=== PATIENT | male | born 1965 | race Caucasian/White ===

== ENCOUNTER 2017-12-11 11:57 | Emergency (ER) | payer OTHER ==
[2017-12-11 12:54] LABS: Absolute Lymphocytes (CBC) 1.2 K/uL (0.7-4.9); Absolute Monocytes 0.7 K/uL (0.1-1.3); Absolute Neutrophil 8.8 K/uL (1.8-8.0); Basophils % 0.6 % (0-1.3); Eosinophils % 0.4 % (0-4.4); Hematocrit 31.3 % (39.6-49.0); Lymphocytes % 11.3 % (15.3-44.8); MCH 20.8 pg (27.0-35.0); MCV 65.1 fL (80-100); Monocytes % 6.7 % (3.3-12.3); RBC Red Blood Cell Count 4.81 M/uL (4.33-5.43)
[2017-12-11 13:17] LABS: Anisocytosis 1+; Blood Morphology Comment NOTED (NOT SEEN); Platelet Estimate INCR; Urine White Blood Cell Casts OK
[2017-12-11 13:36] LABS: Bilirubin Direct 0.2 mg/dL (0-0.2); Bilirubin Total 0.4 mg/dL (0.2-1.0); Protein, Total 7.8 g/dL (6.4-8.2)
--- NOTE | 2017-12-11 14:21 | RAD REPORT ---
EXAM DESCRIPTION: CT - Chest For Pe Angio - 12/11/2017 2:03 pm CLINICAL HISTORY: Bloody stool, weakness, shortness of breath, history of colon cancer in June with little or no foll ow-up COMPARISON: None. TECHNIQUE: Dynamically enhanced 3 mm thick images of the chest were obtained during administration o f approximately 150mL Isovue 370 IV contrast. Coronal and oblique MIP reconstruction images were gene rated and reviewed. Exam utilizes a protocol to evaluate the pulmonary arterial tree. All CT scans are performed using dose optimization technique as appropriate and may include automated exposure control or mA/KV adjustment according to patient size. FINDINGS: No pulmonary emboli are identified. The aorta as imaged shows no acute or suspicious finding. No pericardial thickening or effusion. No focal infiltrates and no suspicious mass. Granuloma is seen in the posterior lower left lung field . No pleural effusion or pleural thickening. No mediastinal or hilar suspicious masses. No chest wall masses or abnormal axillary lymphadenopathy. IMPRESSION: No pulmonary emboli identified. No other significant or suspicious findings.
--- NOTE | 2017-12-11 14:30 | RAD REPORT ---
EXAM DESCRIPTION: CT - Abdomen Pelvis W Contrast - 12/11/2017 2:03 pm CLINICAL HISTORY: Bloody stool, dizziness, history of colon cancer diagnosis in June with little or no subsequent follow-up COMPARISON: CT PE study same date TECHNIQUE: Biphasic, helical CT imaging of the abdomen and pelvis was performed following 100 ml non -ionic IV contrast. Oral contrast was given. All CT scans are performed using dose optimization technique as appropriate and may include automated exposure control or mA/KV adjustment according to patient size. FINDINGS: No suspicious findings in the lung bases. No pericardial thickening or effusion. Liver is grossly abnormal. There are numerous variably sized heterogeneous low-density masses scatter ed throughout the liver parenchyma. Largest lesion is in the dome approximately 8 cm in diameter. Spleen and pancreas show no suspicious findings. Gallbladder and biliary tree are also without suspic ious finding. Symmetric renal function is seen with no hydronephrosis or suspicious renal mass. Contracted urinary bladder shows no suspicious finding. No adrenal abnormality. No gastric dilatation or gastric wall thickening. No acute small bowel finding. Appendix is normal. M oderately large stool volume extends throughout the colon from cecum through descending colon. Sigmoi d colon is quite tortuous and redundant. In the mid sigmoid colon there is a large bulky malignant ma ss approximately 8 x 6 cm in size. This encircles the lumen of the colon and may involve 2 different segments of the sigmoid colon where the redundant loops of sigmoid colon abut one another. No free air, free fluid or inflammatory stranding. Several small 8-12 mm lymph nodes are present in the fat adjacent to the sigmoid colon. Small lymph nodes are seen near the origin of each inguinal ca nal. No bulky lymphadenopathy. No omental thickening. Disc and bony degenerative changes are present. No clearly pathologic bone process. Small periumbilical hernia is present. IMPRESSION: Large bulky 8 centimeter sigmoid malignant mass. The mass encircles the lumen of the sig moid colon and involves the wall of an adjacent segment of the tortuous sigmoid colon that abuts the primary mass. Numerous variably sized metastatic lesions throughout the liver parenchyma largest at 8 cm. Multiple small malignant lymph nodes adjacent to the primary sigmoid mass.
--- NOTE | 2017-12-11 15:22 | ER ---
Nurse's Notes [facility] Name: Paresh Cruz Age: 52 yrs Sex: Male : 1965 Arrival Date: 12/11/2017 Time: 12:02 Bed 16 Private MD: Diagnosis: Colon Mass;GI Bleeding Presentation: 12/11 12:05 Presenting complaint: Patient states: Bloody stools, weakness, dizziness that started 1 aj year ago but got worse in the last few days. Patient reports being DX with colon cancer in June, but has not followed up with GI or oncologist. Transition of care: patient was not received from another setting of care. Onset of symptoms was 2016. Risk Assessment: Do you want to hurt yourself or someone else? Patient reports no desire to harm self or others. Initial Sepsis Screen: Does the patient meet any 2 criteria? No. Patient's initial sepsis screen is negative. Does the patient have a suspected source of infection? No. Patient's initial sepsis screen is negative. Care prior to arrival: None. 12:05 Method Of Arrival: Ambulatory aj 12:05 Acuity: SALONI 2 aj Triage Assessment: 12:08 General: Appears in no apparent distress. uncomfortable, Behavior is calm, cooperative, aj appropriate for age. Pain: Complains of pain in right lower quadrant and left lower quadrant. Neuro: Level of Consciousness is awake, alert, obeys commands, Oriented to person, place, time, situation, Appropriate for age. Neuro: Reports dizziness. Respiratory: Reports cough that is Airway is patent Respiratory effort is even, unlabored, Respiratory pattern is regular, symmetrical. GI: Abdomen is flat, non-distended, Reports lower abdominal pain, bloody stool. Derm: Skin is intact, is healthy with good turgor, Skin is pale. Historical: - Allergies: 12:08 No Known Allergies; aj - Home Meds: 12:08 None [Active]; aj - PMHx: 12:08 colon cancer; Diverticulitis; aj - PSHx: 12:08 eye; aj - Immunization history:: Adult Immunizations unknown. - Social history:: Smoking status: Patient/guardian denies using tobacco. - Ebola Screening: : Patient negative for fever greater than or equal to 101.5 degrees Fahrenheit, and additional compatible Ebola Virus Disease symptoms Patient denies exposure to infectious person Patient denies travel to an Ebola-affected area in the 21 days before illness onset No symptoms or risks identified at this time. Screenin:18 Abuse screen: Denies threats or abuse. Denies injuries from another. Nutritional hj screening: No deficits noted. Tuberculosis screening: No symptoms or risk factors identified. Fall Risk None identified. Assessment: 12:18 GI: Bowel sounds present X 4 quads. Abd is soft Abdomen is tender to palpation Reports hj rectal bleeding, bloody stool. 13:30 Reassessment: Patient and/or family updated on plan of care and expected duration. Pain hj level reassessed. Patient is alert, oriented x 3, equal unlabored respirations, skin warm/dry/pink. wheeled to CT:. 13:45 Reassessment: Patient and/or family updated on plan of care and expected duration. Pain hj level reassessed. Patient is alert, oriented x 3, equal unlabored respirations, skin warm/dry/pink. back form CT:. 14:16 Reassessment: Patient and/or family updated on plan of care and expected duration. Pain hj level reassessed. Patient is alert, oriented x 3, equal unlabored respirations, skin warm/dry/pink. awaiting results and POC;. 15:13 Reassessment: Patient and/or family updated on plan of care and expected duration. Pain hj level reassessed. Patient is alert, oriented x 3, equal unlabored respirations, skin warm/dry/pink. awaiting POC:. Vital Signs: 12:08 BP 109 / 72; Pulse 99; Resp 14; Temp 98.8; Pulse Ox 99% on R/A; Weight 93.89 kg; Height aj 6 ft. 0 in. (182.88 cm); 13:00 BP 110 / 70; Pulse 85; Resp 18; Pulse Ox 100% on R/A; hj 14:14 BP 110 / 78 Supine; Pulse 77; Resp 18; Pulse Ox 99% on R/A; hj 14:14 BP 102 / 73 Sitting; Pulse 74; Resp 18; Pulse Ox 100% on R/A; hj 14:14 BP 106 / 71 Standing; Pulse 87; Resp 18; Pulse Ox 99% on R/A; hj 15:13 BP 110 / 75; Pulse 75; Resp 18; Pulse Ox 100% on R/A; hj 15:40 BP 112 / 76; Pulse 74; Resp 18; Pulse Ox 100% on R/A; hj 12:08 Body Mass Index 28.07 (93.89 kg, 182.88 cm) ED Course: 12:02 Patient arrived in ED. mr 12:07 Triage completed. aj 12:08 Arm band placed on right wrist. Patient placed in an exam room. aj 12:12 Zachary Stewart, RN is Primary Nurse. 12:13 Logan Corrigan PA is PHCP. [facility] 12:13 Miguel Powell MD is Attending Physician. [facility] 12:19 Patient has correct armband on for positive identification. Placed in gown. Bed in low hj position. Call light in reach. Side rails up X 1. 12:30 Initial lab(s) drawn, by me, sent to lab. Inserted saline lock: 22 gauge in right hj antecubital area, using aseptic technique. Blood collected. 14:12 CT Chest For PE Angio In Process Unspecified. EDMS 14:12 CT Abd/Pelvis - W/Contrast In Process Unspecified. EDMS 14:24 Occult Blood Sent. hj 15:40 No provider procedures requiring assistance completed. Patient transferred, IV remains hj in place. intact. Administered Medications: No medications were administered Outcome: 15:21 ER care complete, transfer ordered by . [facility] 15:40 Transferred by ground EMS to [facility], Transfer form completed. hj X-rays sent w/ patient. 15:40 Condition: stable 15:40 Instructed on the need for transfer, Demonstrated understanding of instructions. 16:20 Patient left the ED. Signatures: Dispatcher [employer] EDMS Sita Chen, HOMERO RN Logan Oliva PA PA jmm Rivera, Maria mr Zachary Stewart RN RN hj Corrections: (The following items were deleted from the chart) 12:10 12:08 BP 109 / 72; Pulse 99bpm; Resp 14bpm; Pulse Ox 99% RA; Temp 98.8F; 81.65 kg; aj Height 6 ft. 0 in.; BMI: 24.4; aj 12:11 12:08 BP 109 / 72; Pulse 99bpm; Resp 14bpm; Pulse Ox 99% RA; Temp 98.8F; Height 6 ft. 0 aj in.; aj
--- NOTE | 2017-12-11 15:22 | EDPHYS ---
Physician Documentation [facility] Name: Paresh Cruz Age: 52 yrs Sex: Male : 1965 Arrival Date: 12/11/2017 Time: 12:02 Bed 16 Private MD: ED Physician Miguel Powell HPI: 12/11 12:14 This 52 yrs old Male presents to ER via Ambulatory with complaints of jmm Dizziness, Abdominal Pain. 12:14 The patient presents with abdominal pain in the lower abdomen. Onset: The jmm symptoms/episode began/occurred gradually. The symptoms do not radiate. Associated signs and symptoms: Pertinent positives: blood in stools, Pertinent negatives: nausea and vomiting. The symptoms are described as achy. This is a 52 year old male with no chronic medical conditions that presents to the ED with blood stools, lower abdominal pain worsening today. patient states he was diagnosed with diverticulitis and a colon mass in June of this year. states the pain intensified today with increased bloody stools. patient complains of weakness and dizziness. . Historical: - Allergies: 12:08 No Known Allergies; aj - Home Meds: 12:08 None [Active]; aj - PMHx: 12:08 colon cancer; Diverticulitis; aj - PSHx: 12:08 eye; aj - Immunization history:: Adult Immunizations unknown. - Social history:: Smoking status: Patient/guardian denies using tobacco. - Ebola Screening: : Patient negative for fever greater than or equal to 101.5 degrees Fahrenheit, and additional compatible Ebola Virus Disease symptoms Patient denies exposure to infectious person Patient denies travel to an Ebola-affected area in the 21 days before illness onset No symptoms or risks identified at this time. ROS: 12:14 Constitutional: Negative for fever, chills, and weight loss, Cardiovascular: Negative jmm for chest pain, palpitations, and edema, Respiratory: Negative for shortness of breath, cough, wheezing, and pleuritic chest pain. 12:14 Back: Negative for injury and pain, : Negative for injury, bleeding, discharge, and swelling, MS/Extremity: Negative for injury and deformity, Skin: Negative for injury, rash, and discoloration. 12:14 Abdomen/GI: Positive for abdominal pain, rectal bleeding. 12:14 Neuro: Positive for dizziness, weakness. 12:14 All other systems are negative. Exam: 12:14 Head/Face: atraumatic. Chest/axilla: Normal chest wall appearance and motion. mary Cardiovascular: Regular rate and rhythm. No edema appreciated Respiratory: Normal respirations, no respiratory distress appreciated 12:14 Constitutional: The patient appears in no acute distress, alert, awake. 12:14 Abdomen/GI: Inspection: Bowel sounds: normal, Palpation: soft, moderate abdominal tenderness, in the right lower quadrant and left lower quadrant. 12:14 Back: ROM is normal. 12:14 Musculoskeletal/extremity: ROM: intact in all extremities. 12:14 Skin: Appearance: Color: pale. 12:14 Neuro: Orientation: is normal, Mentation: is normal, Memory: is normal. 12:14 Psych: Behavior/mood is pleasant, cooperative. Vital Signs: 12:08 BP 109 / 72; Pulse 99; Resp 14; Temp 98.8; Pulse Ox 99% on R/A; Weight 93.89 kg; Height aj 6 ft. 0 in. (182.88 cm); 13:00 BP 110 / 70; Pulse 85; Resp 18; Pulse Ox 100% on R/A; hj 14:14 BP 110 / 78 Supine; Pulse 77; Resp 18; Pulse Ox 99% on R/A; hj 14:14 BP 102 / 73 Sitting; Pulse 74; Resp 18; Pulse Ox 100% on R/A; hj 14:14 BP 106 / 71 Standing; Pulse 87; Resp 18; Pulse Ox 99% on R/A; hj 15:13 BP 110 / 75; Pulse 75; Resp 18; Pulse Ox 100% on R/A; hj 15:40 BP 112 / 76; Pulse 74; Resp 18; Pulse Ox 100% on R/A; hj 12:08 Body Mass Index 28.07 (93.89 kg, 182.88 cm) aj MDM: 12:16 Patient medically screened. [facility] 15:17 Data reviewed: vital signs, nurses notes. Counseling: I had a detailed discussion with mary the patient and/or guardian regarding: the historical points, exam findings, and any diagnostic results supporting the discharge/admit diagnosis, radiology results, the need to transfer to another facility. ED course: I discussed the patient with Dr. Wise whom accepted transfer. . 15:17 Data reviewed: lab test result(s), radiologic studies, CT scan. [facility] 12/11 12:14 Order name: Type And Screen [facility] 12/11 12:56 Order name: CBC with Automated Diff; Complete Time: 13:21 [facility] 12/11 13:17 Order name: CBC Smear Scan; Complete Time: 13:21 [facility] 12/11 13:33 Order name: Occult Blood 12/11 13:36 Order name: Basic Metabolic Panel; Complete Time: 13:38 [facility] 12/11 13:36 Order name: Liver (Hepatic) Function; Complete Time: 13:38 [facility] 12/11 13:36 Order name: Amylase Level; Complete Time: 13:38 [facility] 12/11 12:14 Order name: IV Saline Lock; Complete Time: 13:09 [facility] 12/11 12:14 Order name: Labs collected and sent; Complete Time: 13:09 [facility] 12/11 12:14 Order name: Urine Dipstick-Ancillary (obtain specimen); Complete Time: 13:09 [facility] 12/11 12:31 Order name: CT Chest For PE Angio; Complete Time: 14:32 [facility] 12/11 12:31 Order name: CT Abd/Pelvis - W/Contrast; Complete Time: 14:32 [facility] 12/11 13:36 Order name: Lipase; Complete Time: 13:38 [facility] 12/11 13:38 Order name: Urine Dipstick--Ancillary (enter results); Complete Time: 16:07 12/11 13:54 Order name: Type and Screen; Complete Time: 13:59 [facility] 12/11 13:56 Order name: Occult Blood; Complete Time: 13:59 [facility] 12/11 14:01 Order name: Orthostatic Blood Pressure; Complete Time: 14:24 [facility] 12/11 14:46 Order name: ABO/RH no charge; Complete Time: 15:00 EDMS Administered Medications: No medications were administered Disposition: 12/11/17 15:21 Transfer ordered to [facility]. Diagnosis are Colon Mass, GI Bleeding. - Reason for transfer: Higher level of care. - Accepting physician is Billie. - Condition is Stable. - Problem is new. - Symptoms are unchanged. Addendum: 12/14/2017 07:29 Co-signature as Attending Physician, Miguel Powell MD I agree with the assessment and c snider plan of care. Signatures: Dispatcher [employer] EDSita Acevedo RN RN Miguel Taylor MD MD cha Mickail, Joel, PA PA Zachary Marquez RN RN hj Corrections: (The following items were deleted from the chart) 12/11 14:57 13:34 AMYLASE, SERUM+C.LAB.BRZ ordered. EDMS EDMS 14:57 13:34 BASIC METABOLIC PANEL+C.LAB.BRZ ordered. EDMS EDMS 14:57 13:34 HEPATIC FUNCTION+C.LAB.BRZ ordered. EDMS EDMS 14:57 13:34 LIPASE+C.LAB.BRZ ordered. EDMS EDMS 14:58 13:34 CBC+H.LAB.BRZ ordered. EDMS EDMS 14:58 13:34 Creatinine for Radiology+C.LAB.BRZ ordered. EDMS EDMS 14:59 13:34 UA MICROSCOPIC+U.LAB.BRZ ordered. EDMS EDMS 16:20 15:21 12/11/2017 15:21 Transfer ordered to [facility]. Diagnosis is hj Colon Mass; GI Bleeding. Reason for transfer: Higher level of care. Accepting physician is Billie. Condition is Stable. Problem is new. Symptoms are unchanged. marcos
[2017-12-11 15:46] LABS: Urine Blood NEGATIVE (NEG); Urine Glucose NEGATIVE (NEG); Urine Protein NEGATIVE (NEG)
== END 2017-12-11 16:20 | disposition short-term general hospital (02) ==
LOC: ER 11:57
DX: K63.9 Disease of intestine, unspecified (principal); Z85.038 Personal history of other malignant neoplasm of large intestine
CPT/HCPCS: 36415; 71275; 74177; 80048; 80076; 81003; 82150; 82274; 83690; 85025; 86850; 86900; 86901; 99285; Q9967

== ENCOUNTER 2017-12-28 11:30 | Emergency (ER) | payer OTHER ==
--- OUTSIDE RECORDS SUMMARY | 2017-12-28 11:33 | XMS REPORT ---
:1965 [facility] [address] [place] [address] Dr. Mathis [address] [place] [id number] Care Team Providers Name Role Phone DIALLO DIAZ Unavailable Unavailable Problems This patient has no known problems. Allergies, Adverse Reactions, Alerts This patient has no known allergies or adverse reactions. Medications This patient has no known medications. Results Test Description Test Time Test Comments Text Results Atomic Results Result Comments TISSUE EXAM 2017-12-16 17:55:00 Surgical Pathology Report Case: [id number] Authorizing Provider: Damian Reynolds, Collected: 12/14/2017 1543 Ordering Location: [address] Received: 12/15/2017 0810 Service Pathologist: Farnaz Osei MD Specimen: Mass, sigmoid SIGMOID COLON MASS, BIOPSY: - SUPERFICIAL FRAGMENTS OF COLONIC MUCOSA WITH FEATURE OF ADENOCARCINOMA, MODERATELY DIFFERENTIATED - LYMPHOVASCUAR INVASION IDENTIFIEDCC/pl Signing Pathologist Direct Phone Line: [phone] signed by Farnaz Osei MD on 12/16/2017 at 5:55 PMThe biopsy is superficial, and only represent a small portion of the larger mass. Complete excision of the mass is recommended. [address] Colon mass Sigmoid mass The specimen is received in a formalin-filled container labeled with the patient's information and labeled "sigmoid mass" and consists of multiple fragments of wilson-red soft tissue ranging from less than 0.1 to 0.3 cm, submitted entirely in A1. CG/ew The sigmoid colon consists of multiple superficial fragments of colonic mucosa with features of adenocarcinoma, moderately differentiated. Focal lymphovascular invasion is seen. CT, ABDOMEN 2017-12-16 03:05:00 FINAL REPORT EXAM: CT of the chest, with contrast. CT of the abdomen and pelvis, with contrast CLINICAL HISTORY: Neoplasm, colorectal staging. TECHNIQUE: CT of the chest, abdomen and pelvis was performed after intravenous contrast administration. This exam was performed according to our departmental dose optimization program which includes automated exposure control, adjustment of the mA and/or kV according to patient's size and/or use of iterative reconstructive technique. COMPARISON: None FINDINGS: CHEST: LOWER NECK: Within normal limits.AIRWAYS AND LUNGS: Patent central tracheobronchial tree. Mild right lower lobe discoid atelectasis. Calcified granuloma in the left lower lobe, likely from prior granulomatous disease. No pulmonary mass, nodule or focal pulmonary consolidation.PLEURA: No pleural effusion or pneumothorax.VESSELS: Atherosclerotic calcifications of the left main coronary artery. Otherwise unremarkable. HEART: Normal heart size. No pericardial effusion.MARIA L AND MEDIASTINUM: Within normal limits.SOFT TISSUES: Within normal limits.BONES: No suspicious osseous lesions. ABDOMEN AND PELVIS: LIVER: Multiple low-attenuation masses of varying sizes within the liver consistent with metastases. The largest measures 7.1 x 6.9 cm in the hepatic dome.BILE DUCTS: Within normal limits.GALL BLADDER: Within normal limits.PANCREAS: Within normal limits.SPLEEN: Punctate calcified granuloma.ADRENALS: Within normal limits.KIDNEYS/URETERS: Within normal limits. URINARY BLADDER: Within normal limits.REPRODUCTIVE ORGANS: Within normal limits. BOWEL/MESENTERY: 8 x 6.1 x 6 cm fungating mass in the mid sigmoid colon with neovascularity. Sigmoid diverticulosis without acute diverticulitis. No bowel obstruction. Normal appendix.PERITONEUM/RETROPERITONEUM: No free air, free fluid or fluid collection. VESSELS: Within normal limits. LYMPH NODES: Multiple subcentimeter lymph nodes in the mid sigmoid mesentery. Nonenlarged and mildly enlarged common iliac lymph nodes measuring 7 mm and 10 mm in short axis respectively. These are likely metastatic.SOFT TISSUES: Small midline ventral hernia containing fat.BONES: Degenerative changes of the lower lumbar spine. Punctate sclerotic focus in the left iliac bone, favored to represent a bone island. No suspicious osseous lesions IMPRESSION: CT chest: No evidence of pulmonary metastases. CT abdomen and pelvis: Large sigmoid colon mass consistent with known malignancy. Subcentimeter and mildly enlarged pericolonic and lower retroperitoneal lymph nodes, likely metastatic. Hepatic metastases. Signed: Dominga Rosenthal MDReport Verified Date/Time: 12/16/2017 03:05:33 Reading Location: [facility] C013 CT Body Reading Room , CHEST, WITH 2017-12-16 03:05:00 FINAL REPORT CONTRAST EXAM: CT of the chest, with contrast. CT of the abdomen and pelvis, with contrast CLINICAL HISTORY: Neoplasm, colorectal staging. TECHNIQUE: CT of the chest, abdomen and pelvis was performed after intravenous contrast administration. This exam was performed according to our departmental dose optimization program which includes automated exposure control, adjustment of the mA and/or kV according to patient's size and/or use of iterative reconstructive technique. COMPARISON: None FINDINGS: CHEST: LOWER NECK: Within normal limits.AIRWAYS AND LUNGS: Patent central tracheobronchial tree. Mild right lower lobe discoid atelectasis. Calcified granuloma in the left lower lobe, likely from prior granulomatous disease. No pulmonary mass, nodule or focal pulmonary consolidation.PLEURA: No pleural effusion or pneumothorax.VESSELS: Atherosclerotic calcifications of the left main coronary artery. Otherwise unremarkable. HEART: Normal heart size. No pericardial effusion.MARIA L AND MEDIASTINUM: Within normal limits.SOFT TISSUES: Within normal limits.BONES: No suspicious osseous lesions. ABDOMEN AND PELVIS: LIVER: Multiple low-attenuation masses of varying sizes within the liver consistent with metastases. The largest measures 7.1 x 6.9 cm in the hepatic dome.BILE DUCTS: Within normal limits.GALL BLADDER: Within normal limits.PANCREAS: Within normal limits.SPLEEN: Punctate calcified granuloma.ADRENALS: Within normal limits.KIDNEYS/URETERS: Within normal limits. URINARY BLADDER: Within normal limits.REPRODUCTIVE ORGANS: Within normal limits. BOWEL/MESENTERY: 8 x 6.1 x 6 cm fungating mass in the mid sigmoid colon with neovascularity. Sigmoid diverticulosis without acute diverticulitis. No bowel obstruction. Normal appendix.PERITONEUM/RETROPERITONEUM: No free air, free fluid or fluid collection. VESSELS: Within normal limits. LYMPH NODES: Multiple subcentimeter lymph nodes in the mid sigmoid mesentery. Nonenlarged and mildly enlarged common iliac lymph nodes measuring 7 mm and 10 mm in short axis respectively. These are likely metastatic.SOFT TISSUES: Small midline ventral hernia containing fat.BONES: Degenerative changes of the lower lumbar spine. Punctate sclerotic focus in the left iliac bone, favored to represent a bone island. No suspicious osseous lesions IMPRESSION: CT chest: No evidence of pulmonary metastases. CT abdomen and pelvis: Large sigmoid colon mass consistent with known malignancy. Subcentimeter and mildly enlarged pericolonic and lower retroperitoneal lymph nodes, likely metastatic. Hepatic metastases. Signed: Dominga Rosenthaleport Verified Date/Time: 12/16/2017 03:05:33 Reading Location: [facility] B1 C013Y CT Body Reading Room ESIUM 2017-12-16 02:40:00 Test Item Value Reference Range Comments MAGNESIUM (BEAKER) (test qveq=833) 2.1 mg/dL 1.6-2.6 BASIC METABOLIC [id number] 02:40:00 Test Item Value Reference Range Comments SODIUM (BEAKER) (test 135 meq/L 136-145 fwqh=163) POTASSIUM (BEAKER) (test 4.3 meq/L 3.5-5.1 eich=094) CHLORIDE (BEAKER) (test 101 meq/L 98-107 cnck=827) CO2 (BEAKER) (test 27 meq/L 22-29 emls=184) BLOOD UREA NITROGEN 8 mg/dL 7-21 (BEAKER) (test nmcq=406) CREATININE (BEAKER) (test 1.05 mg/dL 0.57-1.25 sutj=506) GLUCOSE RANDOM (BEAKER) 103 mg/dL 70-105 (test yxbr=456) CALCIUM (BEAKER) (test 8.7 mg/dL 8.4-10.2 gtno=565) EGFR (BEAKER) (test 74 mL/min/1.73 sq m ESTIMATED GFR IS NOT curq=5567) ACCURATE CREATININE CLEARANCE IN PREDICTING GLOMERULAR FILTRATION RATE. ESTIMATED GFR IS NOT APPLICABLE FOR DIALYSIS PATIENTS. CBC W/PLT COUNT & AUTO [id number] 02:21:00 Test Item Value Reference Range Comments WHITE BLOOD CELL COUNT (BEAKER) (test hmsw=018) 7.5 K/ L 3.5-10.5 RED BLOOD CELL COUNT (BEAKER) (test rgyu=408) 4.64 M/ L 4.63-6.08 HEMOGLOBIN (BEAKER) (test hbwz=147) 9.4 GM/DL 13.7-17.5 HEMATOCRIT (BEAKER) (test uqsv=467) 33.0 % 40.1-51.0 MEAN CORPUSCULAR VOLUME (BEAKER) (test drzf=149) 71.1 fL 79.0-92.2 MEAN CORPUSCULAR HEMOGLOBIN (BEAKER) (test 20.3 pg 25.7-32.2 rqpi=568) MEAN CORPUSCULAR HEMOGLOBIN CONC (BEAKER) (test 28.5 GM/DL 32.3-36.5 elpq=420) RED CELL DISTRIBUTION WIDTH (BEAKER) (test 17.0 % 11.6-14.4 yust=544) PLATELET COUNT (BEAKER) (test zbft=802) 510 K/CU MM 150-450 MEAN PLATELET VOLUME (BEAKER) (test cnts=084) 8.3 fL 9.4-12.4 NUCLEATED RED BLOOD CELLS (BEAKER) (test 0 /100 WBC 0-0 ubzn=837) NEUTROPHILS RELATIVE PERCENT (BEAKER) (test 71 % swrc=396) LYMPHOCYTES RELATIVE PERCENT (BEAKER) (test 14 % lnyj=325) MONOCYTES RELATIVE PERCENT (BEAKER) (test 11 % gyvk=310) EOSINOPHILS RELATIVE PERCENT (BEAKER) (test 3 % omth=685) BASOPHILS RELATIVE PERCENT (BEAKER) (test 1 % nmyx=918) NEUTROPHILS ABSOLUTE COUNT (BEAKER) (test 5.29 K/ L 1.78-5.38 sxux=698) LYMPHOCYTES ABSOLUTE COUNT (BEAKER) (test 1.04 K/ L 1.32-3.57 scrr=468) MONOCYTES ABSOLUTE COUNT (BEAKER) (test 0.85 K/ L 0.30-0.82 xmcz=458) EOSINOPHILS ABSOLUTE COUNT (BEAKER) (test 0.23 K/ L 0.04-0.54 gipy=816) BASOPHILS ABSOLUTE COUNT (BEAKER) (test 0.04 K/ L 0.01-0.08 abqk=598) IMMATURE GRANULOCYTES-RELATIVE PERCENT (BEAKER) 1 % 0-1 (test rcnc=6330) [id number] 08:56:00 Test Item Value Reference Range Comments MAGNESIUM (BEAKER) (test akmt=345) 2.0 mg/dL 1.6-2.6 BASIC METABOLIC [id number] 08:32:00 Test Item Value Reference Range Comments SODIUM (BEAKER) (test 136 meq/L 136-145 gwiw=718) POTASSIUM (BEAKER) (test 4.4 meq/L 3.5-5.1 ttdn=918) CHLORIDE (BEAKER) (test 103 meq/L 98-107 evmr=064) CO2 (BEAKER) (test 22 meq/L 22-29 apqf=446) BLOOD UREA NITROGEN 8 mg/dL 7-21 (BEAKER) (test vano=041) CREATININE (BEAKER) (test 0.99 mg/dL 0.57-1.25 nhjw=312) GLUCOSE RANDOM (BEAKER) 86 mg/dL 70-105 (test hobp=620) CALCIUM (BEAKER) (test 9.0 mg/dL 8.4-10.2 tfzk=723) EGFR (BEAKER) (test 79 mL/min/1.73 sq m ESTIMATED GFR IS NOT maxv=7768) ACCURATE CREATININE CLEARANCE IN PREDICTING GLOMERULAR FILTRATION RATE. ESTIMATED GFR IS NOT APPLICABLE FOR DIALYSIS PATIENTS. CBC W/PLT COUNT & AUTO [id number] 05:44:00 Test Item Value Reference Range Comments WHITE BLOOD CELL COUNT (BEAKER) (test wvmj=947) 8.8 K/ L 3.5-10.5 RED BLOOD CELL COUNT (BEAKER) (test cglh=667) 4.75 M/ L 4.63-6.08 HEMOGLOBIN (BEAKER) (test zxnc=020) 9.5 GM/DL 13.7-17.5 HEMATOCRIT (BEAKER) (test vlon=643) 33.6 % 40.1-51.0 MEAN CORPUSCULAR VOLUME (BEAKER) (test btez=259) 70.7 fL 79.0-92.2 MEAN CORPUSCULAR HEMOGLOBIN (BEAKER) (test 20.0 pg 25.7-32.2 szyu=332) MEAN CORPUSCULAR HEMOGLOBIN CONC (BEAKER) (test 28.3 GM/DL 32.3-36.5 qyyx=271) RED CELL DISTRIBUTION WIDTH (BEAKER) (test 16.9 % 11.6-14.4 slut=793) PLATELET COUNT (BEAKER) (test olyx=992) 554 K/CU MM 150-450 MEAN PLATELET VOLUME (BEAKER) (test wnon=446) 8.7 fL 9.4-12.4 NUCLEATED RED BLOOD CELLS (BEAKER) (test 0 /100 WBC 0-0 zplv=454) NEUTROPHILS RELATIVE PERCENT (BEAKER) (test 73 % ebxj=154) LYMPHOCYTES RELATIVE PERCENT (BEAKER) (test 14 % qxrc=748) MONOCYTES RELATIVE PERCENT (BEAKER) (test 10 % fjfl=773) EOSINOPHILS RELATIVE PERCENT (BEAKER) (test 2 % rsce=510) BASOPHILS RELATIVE PERCENT (BEAKER) (test 1 % bqda=528) NEUTROPHILS ABSOLUTE COUNT (BEAKER) (test 6.43 K/ L 1.78-5.38 tyrv=792) LYMPHOCYTES ABSOLUTE COUNT (BEAKER) (test 1.19 K/ L 1.32-3.57 gwkb=096) MONOCYTES ABSOLUTE COUNT (BEAKER) (test 0.91 K/ L 0.30-0.82 djqe=700) EOSINOPHILS ABSOLUTE COUNT (BEAKER) (test 0.17 K/ L 0.04-0.54 favd=144) BASOPHILS ABSOLUTE COUNT (BEAKER) (test 0.05 K/ L 0.01-0.08 zgey=411) IMMATURE GRANULOCYTES-RELATIVE PERCENT (BEAKER) 0 % 0-1 (test utyk=9539) [id number] 07:16:00 Test Item Value Reference Range Comments MAGNESIUM (BEAKER) (test zfbk=774) 1.8 mg/dL 1.6-2.6 BASIC METABOLIC [id number] 07:16:00 Test Item Value Reference Range Comments SODIUM (BEAKER) (test 133 meq/L 136-145 clzs=828) POTASSIUM (BEAKER) (test 4.4 meq/L 3.5-5.1 dzkd=840) CHLORIDE (BEAKER) (test 102 meq/L 98-107 bijm=380) CO2 (BEAKER) (test 24 meq/L 22-29 zfiw=788) BLOOD UREA NITROGEN 7 mg/dL 7-21 (BEAKER) (test nrsi=952) CREATININE (BEAKER) (test 0.93 mg/dL 0.57-1.25 vpls=342) GLUCOSE RANDOM (BEAKER) 84 mg/dL 70-105 (test ckvk=252) CALCIUM (BEAKER) (test 8.9 mg/dL 8.4-10.2 asqh=635) EGFR (BEAKER) (test 85 mL/min/1.73 sq m ESTIMATED GFR IS NOT yjey=4247) ACCURATE CREATININE CLEARANCE IN PREDICTING GLOMERULAR FILTRATION RATE. ESTIMATED GFR IS NOT APPLICABLE FOR DIALYSIS PATIENTS. HEMOGLOBIN AND [id number] 06:16:00 Test Item Value Reference Range Comments HEMOGLOBIN (BEAKER) (test geft=700) 9.3 GM/DL 13.7-17.5 HEMATOCRIT (BEAKER) (test zuyg=610) 32.5 % 40.1-51.0 CBC W/PLT COUNT & AUTO [id number] 06:16:00 Test Item Value Reference Range Comments WHITE BLOOD CELL COUNT (BEAKER) (test bgzx=276) 7.7 K/ L 3.5-10.5 RED BLOOD CELL COUNT (BEAKER) (test ckhu=125) 4.57 M/ L 4.63-6.08 HEMOGLOBIN (BEAKER) (test qdef=770) 9.3 GM/DL 13.7-17.5 HEMATOCRIT (BEAKER) (test rsvr=182) 32.5 % 40.1-51.0 MEAN CORPUSCULAR VOLUME (BEAKER) (test duxx=430) 71.1 fL 79.0-92.2 MEAN CORPUSCULAR HEMOGLOBIN (BEAKER) (test 20.4 pg 25.7-32.2 bfgd=730) MEAN CORPUSCULAR HEMOGLOBIN CONC (BEAKER) (test 28.6 GM/DL 32.3-36.5 awhf=203) RED CELL DISTRIBUTION WIDTH (BEAKER) (test 16.8 % 11.6-14.4 mhhy=696) PLATELET COUNT (BEAKER) (test gwao=967) 522 K/CU MM 150-450 MEAN PLATELET VOLUME (BEAKER) (test eqdz=364) 8.2 fL 9.4-12.4 NUCLEATED RED BLOOD CELLS (BEAKER) (test 0 /100 WBC 0-0 sztn=467) NEUTROPHILS RELATIVE PERCENT (BEAKER) (test 72 % rdbn=267) LYMPHOCYTES RELATIVE PERCENT (BEAKER) (test 12 % hzom=588) MONOCYTES RELATIVE PERCENT (BEAKER) (test 12 % rnyt=994) EOSINOPHILS RELATIVE PERCENT (BEAKER) (test 3 % btdu=770) BASOPHILS RELATIVE PERCENT (BEAKER) (test 1 % ahoy=496) NEUTROPHILS ABSOLUTE COUNT (BEAKER) (test 5.58 K/ L 1.78-5.38 laxq=781) LYMPHOCYTES ABSOLUTE COUNT (BEAKER) (test 0.96 K/ L 1.32-3.57 lnhq=724) MONOCYTES ABSOLUTE COUNT (BEAKER) (test 0.90 K/ L 0.30-0.82 uwry=368) EOSINOPHILS ABSOLUTE COUNT (BEAKER) (test 0.21 K/ L 0.04-0.54 whpf=762) BASOPHILS ABSOLUTE COUNT (BEAKER) (test 0.05 K/ L 0.01-0.08 ymvm=878) IMMATURE GRANULOCYTES-RELATIVE PERCENT (BEAKER) 0 % 0-1 (test evzh=7531) HEMOGLOBIN AND [id number] 18:09:00 Test Item Value Reference Range Comments HEMOGLOBIN (BEAKER) (test phds=260) 9.9 GM/DL 13.7-17.5 HEMATOCRIT (BEAKER) (test yfxi=265) 34.4 % 40.1-51.0 CBC W/PLT COUNT & AUTO [id number] 07:47:00 Test Item Value Reference Range Comments WHITE BLOOD CELL COUNT (BEAKER) (test wiag=075) 7.6 K/ L 3.5-10.5 RED BLOOD CELL COUNT (BEAKER) (test xeuy=745) 4.75 M/ L 4.63-6.08 HEMOGLOBIN (BEAKER) (test bwtd=820) 9.5 GM/DL 13.7-17.5 HEMATOCRIT (BEAKER) (test vhak=062) 33.9 % 40.1-51.0 MEAN CORPUSCULAR VOLUME (BEAKER) (test uruh=920) 71.4 fL 79.0-92.2 MEAN CORPUSCULAR HEMOGLOBIN (BEAKER) (test 20.0 pg 25.7-32.2 wbzs=813) MEAN CORPUSCULAR HEMOGLOBIN CONC (BEAKER) (test 28.0 GM/DL 32.3-36.5 spmf=872) RED CELL DISTRIBUTION WIDTH (BEAKER) (test 16.6 % 11.6-14.4 uzvx=525) PLATELET COUNT (BEAKER) (test pcco=247) 592 K/CU MM 150-450 MEAN PLATELET VOLUME (BEAKER) (test fcya=768) 8.8 fL 9.4-12.4 NUCLEATED RED BLOOD CELLS (BEAKER) (test 0 /100 WBC 0-0 tyko=201) NEUTROPHILS RELATIVE PERCENT (BEAKER) (test 67 % ghzh=039) LYMPHOCYTES RELATIVE PERCENT (BEAKER) (test 17 % pgwv=977) MONOCYTES RELATIVE PERCENT (BEAKER) (test 11 % voeg=745) EOSINOPHILS RELATIVE PERCENT (BEAKER) (test 4 % mgft=522) BASOPHILS RELATIVE PERCENT (BEAKER) (test 1 % rqfq=118) NEUTROPHILS ABSOLUTE COUNT (BEAKER) (test 5.12 K/ L 1.78-5.38 ahnx=518) LYMPHOCYTES ABSOLUTE COUNT (BEAKER) (test 1.27 K/ L 1.32-3.57 dglm=071) MONOCYTES ABSOLUTE COUNT (BEAKER) (test 0.86 K/ L 0.30-0.82 rmab=191) EOSINOPHILS ABSOLUTE COUNT (BEAKER) (test 0.30 K/ L 0.04-0.54 yafq=906) BASOPHILS ABSOLUTE COUNT (BEAKER) (test 0.07 K/ L 0.01-0.08 qjlo=461) IMMATURE GRANULOCYTES-RELATIVE PERCENT (BEAKER) 0 % 0-1 (test udqa=9655) [id number] 07:43:00 Test Item Value Reference Range Comments MAGNESIUM (BEAKER) (test jkam=467) 2.0 mg/dL 1.6-2.6 BASIC METABOLIC [id number] 07:43:00 Test Item Value Reference Range Comments SODIUM (BEAKER) (test 135 meq/L 136-145 xczk=295) POTASSIUM (BEAKER) (test 4.3 meq/L 3.5-5.1 xwnt=695) CHLORIDE (BEAKER) (test 103 meq/L 98-107 qrbe=912) CO2 (BEAKER) (test 23 meq/L 22-29 pfvm=677) BLOOD UREA NITROGEN 7 mg/dL 7-21 (BEAKER) (test nuxy=842) CREATININE (BEAKER) (test 0.94 mg/dL 0.57-1.25 njmb=737) GLUCOSE RANDOM (BEAKER) 70 mg/dL 70-105 (test myay=371) CALCIUM (BEAKER) (test 9.1 mg/dL 8.4-10.2 psvt=935) EGFR (BEAKER) (test 84 mL/min/1.73 sq m ESTIMATED GFR IS NOT cars=0408) ACCURATE CREATININE CLEARANCE IN PREDICTING GLOMERULAR FILTRATION RATE. ESTIMATED GFR IS NOT APPLICABLE FOR DIALYSIS PATIENTS. TSH/FREE T4 IF [id number] 19:04:00 Test Item Value Reference Range Comments THYROID STIMULATING HORMONE (BEAKER) (test 3.63 uIU/mL 0.35-4.94 bekf=822) HEMOGLOBIN AND [id number] 18:23:00 Test Item Value Reference Range Comments HEMOGLOBIN (BEAKER) (test jcfe=539) 9.6 GM/DL 13.7-17.5 HEMATOCRIT (BEAKER) (test ghce=072) 33.1 % 40.1-51.0 CBC W/PLT COUNT & AUTO [id number] 13:57:00 Test Item Value Reference Range Comments WHITE BLOOD CELL COUNT (BEAKER) (test yyvo=925) 9.1 K/ L 3.5-10.5 RED BLOOD CELL COUNT (BEAKER) (test cvkx=451) 4.78 M/ L 4.63-6.08 HEMOGLOBIN (BEAKER) (test ckfj=850) 9.8 GM/DL 13.7-17.5 HEMATOCRIT (BEAKER) (test lhgr=375) 34.2 % 40.1-51.0 MEAN CORPUSCULAR VOLUME (BEAKER) (test zkaj=322) 71.5 fL 79.0-92.2 MEAN CORPUSCULAR HEMOGLOBIN (BEAKER) (test 20.5 pg 25.7-32.2 erwu=544) MEAN CORPUSCULAR HEMOGLOBIN CONC (BEAKER) (test 28.7 GM/DL 32.3-36.5 xoyg=193) RED CELL DISTRIBUTION WIDTH (BEAKER) (test 16.3 % 11.6-14.4 qcsg=302) PLATELET COUNT (BEAKER) (test lxja=938) 590 K/CU MM 150-450 MEAN PLATELET VOLUME (BEAKER) (test abow=832) 8.6 fL 9.4-12.4 NUCLEATED RED BLOOD CELLS (BEAKER) (test 0 /100 WBC 0-0 xfir=395) NEUTROPHILS RELATIVE PERCENT (BEAKER) (test 71 % wbdq=953) LYMPHOCYTES RELATIVE PERCENT (BEAKER) (test 15 % rgzu=300) MONOCYTES RELATIVE PERCENT (BEAKER) (test 10 % igqq=313) EOSINOPHILS RELATIVE PERCENT (BEAKER) (test 3 % zpvq=393) BASOPHILS RELATIVE PERCENT (BEAKER) (test 1 % jaqf=477) NEUTROPHILS ABSOLUTE COUNT (BEAKER) (test 6.42 K/ L 1.78-5.38 zcrd=671) LYMPHOCYTES ABSOLUTE COUNT (BEAKER) (test 1.39 K/ L 1.32-3.57 axdi=282) MONOCYTES ABSOLUTE COUNT (BEAKER) (test 0.93 K/ L 0.30-0.82 xebt=047) EOSINOPHILS ABSOLUTE COUNT (BEAKER) (test 0.26 K/ L 0.04-0.54 scsb=434) BASOPHILS ABSOLUTE COUNT (BEAKER) (test 0.07 K/ L 0.01-0.08 arbv=374) IMMATURE GRANULOCYTES-RELATIVE PERCENT (BEAKER) 0 % 0-1 (test uqyp=4765) TROPONIN [id number] 12:05:00 Test Item Value Reference Range Comments TROPONIN I (BEAKER) (test haks=529) < ng/mL 0.00-0.03 Troponin I (TnI) levels must be interpreted in the context of the presenting symptoms and the clinical findings. Elevated TnI levels indicate myocardial damage, but are not specific for ischemic heart disease. Elevated TnI levels are seen in patients with other cardiac conditions (including myocarditis and congestive heart failure), and slight TnI elevations occur in patients with other conditions, including sepsis, renal failure, acidosis, acute neurological disease, and persistent tachyarrhythmia.TROPONIN [id number] 08:40:00 Test Item Value Reference Range Comments TROPONIN I (BEAKER) (test scnv=419) < ng/mL 0.00-0.03 Troponin I (TnI) levels must be interpreted in the context of the presenting symptoms and the clinical findings. Elevated TnI levels indicate myocardial damage, but are not specific for ischemic heart disease. Elevated TnI levels are seen in patients with other cardiac conditions (including myocarditis and congestive heart failure), and slight TnI elevations occur in patients with other conditions, including sepsis, renal failure, acidosis, acute neurological disease, and persistent tachyarrhythmia.[id number] 08:35:00 Test Item Value Reference Range Comments FERRITIN (BEAKER) (test imya=110) 30 ng/mL 5-275 HEPATIC FUNCTION [id number] 08:34:00 Test Item Value Reference Range Comments TOTAL PROTEIN (BEAKER) (test djpl=133) 6.8 gm/dL 6.0-8.3 ALBUMIN (BEAKER) (test dhzl=1526) 3.5 g/dL 3.5-5.0 BILIRUBIN TOTAL (BEAKER) (test dood=150) 0.5 mg/dL 0.2-1.2 BILIRUBIN DIRECT (BEAKER) (test dloc=763) 0.3 mg/dL 0.1-0.5 ALKALINE PHOSPHATASE (BEAKER) (test ljkc=014) 150 U/L 40-150 AST (SGOT) (BEAKER) (test uriw=693) 31 U/L 5-34 ALT (SGPT) (BEAKER) (test mukq=035) 19 U/L 6-55 BASIC METABOLIC [id number] 08:34:00 Test Item Value Reference Range Comments SODIUM (BEAKER) (test 133 meq/L 136-145 rzdx=981) POTASSIUM (BEAKER) (test 4.0 meq/L 3.5-5.1 arqq=544) CHLORIDE (BEAKER) (test 102 meq/L 98-107 mlwx=545) CO2 (BEAKER) (test 23 meq/L 22-29 kqcl=076) BLOOD UREA NITROGEN 11 mg/dL 7-21 (BEAKER) (test init=152) CREATININE (BEAKER) (test 0.99 mg/dL 0.57-1.25 kcxe=947) GLUCOSE RANDOM (BEAKER) 78 mg/dL 70-105 (test bzmh=709) CALCIUM (BEAKER) (test 9.1 mg/dL 8.4-10.2 idzy=737) EGFR (BEAKER) (test 79 mL/min/1.73 sq m ESTIMATED GFR IS NOT uglz=9899) ACCURATE CREATININE CLEARANCE IN PREDICTING GLOMERULAR FILTRATION RATE. ESTIMATED GFR IS NOT APPLICABLE FOR DIALYSIS PATIENTS. [id number] 08:34:00 Test Item Value Reference Range Comments MAGNESIUM (BEAKER) (test ylaq=663) 2.2 mg/dL 1.6-2.6 IRON, TIBC, % SAT. (WITHOUT FERRITIN)2017-12-12 08:15:00 Test Item Value Reference Range Comments IRON (BEAKER) (test izvv=863) 18 ug/dL 40-160 TOTAL IRON BINDING CAPACITY (BEAKER) (test 354 ug/dL 250-450 ijbx=434) IRON % SATURATION (2) (BEAKER) (test ejqm=7326) 5 % 20-55 TROPONIN [id number] 02:15:00 Test Item Value Reference Range Comments TROPONIN I (BEAKER) (test phjm=020) < ng/mL 0.00-0.03 Troponin I (TnI) levels must be interpreted in the context of the presenting symptoms and the clinical findings. Elevated TnI levels indicate myocardial damage, but are not specific for ischemic heart disease. Elevated TnI levels are seen in patients with other cardiac conditions (including myocarditis and congestive heart failure), and slight TnI elevations occur in patients with other conditions, including sepsis, renal failure, acidosis, acute neurological disease, and persistent tachyarrhythmia.URINALYSIS W/ REFLEX URINE [id number] 20:53:00 Test Item Value Reference Range Comments COLOR (BEAKER) (test snjc=422) Yellow CLARITY (BEAKER) (test fgbr=164) Clear SPECIFIC GRAVITY UA (BEAKER) (test uswg=070) > 1.001-1.035 PH UA (BEAKER) (test fidk=403) 5.0 5.0-8.0 PROTEIN UA (BEAKER) (test rdxw=627) 10 mg/dL Negative GLUCOSE UA (BEAKER) (test hvda=008) Negative Negative KETONES UA (BEAKER) (test zbcs=334) 60 mg/dL Negative BILIRUBIN UA (BEAKER) (test fjcu=687) Negative Negative BLOOD UA (BEAKER) (test bolk=872) Negative Negative NITRITE UA (BEAKER) (test rnbe=415) Negative Negative LEUKOCYTE ESTERASE UA (BEAKER) (test nfep=902) Negative Negative UROBILINOGEN UA (BEAKER) (test mele=192) 0.2 mg/dL 0.2-1.0 RBC UA (BEAKER) (test ucpd=035) 1 /HPF WBC UA (BEAKER) (test vlhn=845) 1 /HPF MUCUS (BEAKER) (test vuyc=3478) Rare SOURCE(BEAKER) (test sqmi=5130) CARCINOEMBRYONIC ANTIGEN (CEA)2017-12-11 19:20:00 Test Item Value Reference Range Comments CARCINOEMBRYONIC ANTIGEN (BEAKER) (test pxpb=561) 31.5 ng/mL 0.0-5.0 [id number] 19:02:00 Test Item Value Reference Range Comments PROTIME (BEAKER) (test hvfv=069) 15.2 seconds 11.7-14.7 INR (BEAKER) (test anqq=191) 1.2 <=5.9 PARTIAL THROMBOPLASTIN TIME (BEAKER) (test 28.5 seconds 22.5-36.0 mkyt=945) RECOMMENDED COUMADIN/WARFARIN INR THERAPY RANGESSTANDARD DOSE: 2.0 - 3.0 Includes: PROPHYLAXIS forvenous thrombosis, systemic embolization; TREATMENT for venous thrombosis and/or pulmonary embolus.HIGH RISK: Target INR is 2.5-3.5 for patients with mechanical heart valves.PROTHROMBIN TIME/[id number] 19:01: 00 Test Item Value Reference Range Comments PROTIME (BEAKER) (test rwvu=702) 15.2 seconds 11.7-14.7 INR (BEAKER) (test xayi=721) 1.2 <=5.9 RECOMMENDED COUMADIN/WARFARIN INR THERAPY RANGESSTANDARD DOSE: 2.0 - 3.0 Includes: PROPHYLAXIS forvenous thrombosis, systemic embolization; TREATMENT for venous thrombosis and/or pulmonary embolus.HIGH RISK: Target INR is 2.5-3.5 for patients with mechanical heart valves.HEPATIC FUNCTION [id number] 19:01 :00 Test Item Value Reference Range Comments TOTAL PROTEIN (BEAKER) (test pzrc=270) 6.9 gm/dL 6.0-8.3 ALBUMIN (BEAKER) (test dsbs=3970) 3.5 g/dL 3.5-5.0 BILIRUBIN TOTAL (BEAKER) (test lehs=178) 0.6 mg/dL 0.2-1.2 BILIRUBIN DIRECT (BEAKER) (test sovt=190) 0.3 mg/dL 0.1-0.5 ALKALINE PHOSPHATASE (BEAKER) (test jtfc=181) 155 U/L 40-150 AST (SGOT) (BEAKER) (test yqvx=086) 37 U/L 5-34 ALT (SGPT) (BEAKER) (test hjol=555) 22 U/L 6-55 COMPREHENSIVE METABOLIC [id number] 19:01:00 Test Item Value Reference Range Comments TOTAL PROTEIN (BEAKER) 6.9 gm/dL 6.0-8.3 (test ihgj=668) ALBUMIN (BEAKER) (test 3.5 g/dL 3.5-5.0 zswd=1450) ALKALINE PHOSPHATASE 155 U/L 40-150 (BEAKER) (test cyiq=894) BILIRUBIN TOTAL (BEAKER) 0.6 mg/dL 0.2-1.2 (test oyhi=277) SODIUM (BEAKER) (test 138 meq/L 136-145 ciyr=913) POTASSIUM (BEAKER) (test 4.0 meq/L 3.5-5.1 vilv=638) CHLORIDE (BEAKER) (test 104 meq/L 98-107 fhsf=312) CO2 (BEAKER) (test 22 meq/L 22-29 fhmr=795) BLOOD UREA NITROGEN 13 mg/dL 7-21 (BEAKER) (test vcwm=846) CREATININE (BEAKER) (test 1.07 mg/dL 0.57-1.25 glui=314) GLUCOSE RANDOM (BEAKER) 78 mg/dL 70-105 (test ptzq=271) CALCIUM (BEAKER) (test 9.4 mg/dL 8.4-10.2 davk=662) AST (SGOT) (BEAKER) (test 37 U/L 5-34 yaee=438) ALT (SGPT) (BEAKER) (test 22 U/L 6-55 tneg=648) EGFR (BEAKER) (test 72 mL/min/1.73 sq m ESTIMATED GFR IS NOT gdjb=8659) ACCURATE CREATININE CLEARANCE IN PREDICTING GLOMERULAR FILTRATION RATE. ESTIMATED GFR IS NOT APPLICABLE FOR DIALYSIS PATIENTS. CBC W/PLT COUNT & AUTO [id number] 18:51:00 Test Item Value Reference Range Comments WHITE BLOOD CELL COUNT (BEAKER) (test iuij=210) 9.0 K/ L 3.5-10.5 RED BLOOD CELL COUNT (BEAKER) (test ceto=221) 4.60 M/ L 4.63-6.08 HEMOGLOBIN (BEAKER) (test izfi=000) 9.0 GM/DL 13.7-17.5 HEMATOCRIT (BEAKER) (test qbrj=455) 32.2 % 40.1-51.0 MEAN CORPUSCULAR VOLUME (BEAKER) (test fqrx=184) 70.0 fL 79.0-92.2 MEAN CORPUSCULAR HEMOGLOBIN (BEAKER) (test 19.6 pg 25.7-32.2 ktnv=357) MEAN CORPUSCULAR HEMOGLOBIN CONC (BEAKER) (test 28.0 GM/DL 32.3-36.5 ldst=478) RED CELL DISTRIBUTION WIDTH (BEAKER) (test 15.7 % 11.6-14.4 sudy=018) PLATELET COUNT (BEAKER) (test xrmi=811) 661 K/CU MM 150-450 MEAN PLATELET VOLUME (BEAKER) (test cjtc=424) 8.6 fL 9.4-12.4 NUCLEATED RED BLOOD CELLS (BEAKER) (test 0 /100 WBC 0-0 xoyr=988) NEUTROPHILS RELATIVE PERCENT (BEAKER) (test 72 % aiou=970) LYMPHOCYTES RELATIVE PERCENT (BEAKER) (test 16 % rkzy=832) MONOCYTES RELATIVE PERCENT (BEAKER) (test 9 % pwig=482) EOSINOPHILS RELATIVE PERCENT (BEAKER) (test 1 % ceyf=396) BASOPHILS RELATIVE PERCENT (BEAKER) (test 1 % xifv=362) NEUTROPHILS ABSOLUTE COUNT (BEAKER) (test 6.47 K/ L 1.78-5.38 zdua=463) LYMPHOCYTES ABSOLUTE COUNT (BEAKER) (test 1.46 K/ L 1.32-3.57 kflo=242) MONOCYTES ABSOLUTE COUNT (BEAKER) (test 0.83 K/ L 0.30-0.82 tosd=891) EOSINOPHILS ABSOLUTE COUNT (BEAKER) (test 0.13 K/ L 0.04-0.54 syjl=995) BASOPHILS ABSOLUTE COUNT (BEAKER) (test 0.06 K/ L 0.01-0.08 rtkz=193) IMMATURE GRANULOCYTES-RELATIVE PERCENT (BEAKER) 0 % 0-1 (test xyzj=6122)
[2017-12-28 12:13] LABS: Absolute Lymphocytes (CBC) 0.9 K/uL (0.7-4.9); Absolute Monocytes 0.8 K/uL (0.1-1.3); Absolute Neutrophil 7.6 K/uL (1.8-8.0); Basophils % 0.5 % (0-1.3); Hematocrit 32.3 % (39.6-49.0); Lymphocytes % 9.5 % (15.3-44.8); MCH 20.1 pg (27.0-35.0); MCV 64.9 fL (80-100); MPV 6.8 fL (7.6-11.3); Monocytes % 8.6 % (3.3-12.3); RBC Red Blood Cell Count 4.97 M/uL (4.33-5.43)
[2017-12-28 12:34] LABS: Albumin 2.6 g/dL (3.4-5.0); Bilirubin Direct 0.2 mg/dL (0-0.2); Bilirubin Total 0.5 mg/dL (0.2-1.0); Potassium 3.8 mmol/L (3.5-5.1); Protein, Total 7.7 g/dL (6.4-8.2)
[2017-12-28] MEDS ORDERED: FENTANYL CITR 100 MCG/2 ML ONE ×2 (12:42→13:36)
[2017-12-28] MEDS ORDERED: ONDANSETRON 4 MG/2 ML VIAL ONE (12:43)
[2017-12-28 13:20] LABS: Blood Morphology Comment NOTED (NOT SEEN); Urine White Blood Cell Casts OK
[2017-12-28 13:21] LABS: Anisocytosis 1+; Platelet Estimate DECR
--- NOTE | 2017-12-28 14:07 | RAD REPORT ---
EXAM DESCRIPTION: CT - Abdomen Pelvis Wo Contrast - 12/28/2017 1:48 pm CLINICAL HISTORY: Abdominal pain, right upper quadrant pain, history of metastatic colon carcinoma, history of diverticulitis COMPARISON: CT imaging December 11 TECHNIQUE: Axial [address] imaging of the abdomen and pelvis was performed without IV contrast. No IV contrast was given because of allergy, abnormal renal function, patient refusal or physician re quest. Oral contrast administered All CT scans are performed using dose optimization technique as appropriate and may include automated exposure control or mA/KV adjustment according to patient size. FINDINGS: No suspicious findings in the lung bases. The liver is grossly abnormal. There are numerous poorly demarcated areas of diminished attenuation i n the superior right lobe and in the inferior aspect of the right lobe. Comparison of the prior study is difficult due to the absence of contrast on the current examination. Allowing for this difference , the liver is not grossly different from mid November. No intrahepatic hemorrhage. Overall liver si ze has not changed. The spleen, pancreas, gallbladder and biliary tree show no suspicious findings. Gallstones can be occ ult on CT imaging. Active gallbladder process is not suspected. No hydronephrosis or suspicious renal mass. No significant adrenal finding. Isodense renal masses an d pyelonephritis cannot be excluded in the absence of IV contrast. The urinary bladder is without sig nificant finding. No gastric dilatation or gastric wall thickening. Oral contrast has reached the mid small bowel level . No appendicitis findings. Moderate stool volume is present in the nondilated colon from cecum throu gh proximal sigmoid colon. Patient's known large bulky malignant mass at the rectosigmoid junction is not grossly different from the prior study. Multiple small adjacent abnormal lymph nodes are present . No perforation findings. No free air, free fluid or inflammatory stranding. No suspicious bony findings. IMPRESSION: Known hepatic metastatic disease is not grossly different from the December 11 study. C omparison is less sensitive in the absence of contrast. No hemorrhage, ascites or other acute right upper quadrant finding. Gallbladder is grossly normal. Ga llstones can be occult. Known large bulky mass at the rectosigmoid junction not clearly different from mid November. No free air, abscess or surgically emergent finding. Full assessment is limited is the absence of IV contrast.
--- NOTE | 2017-12-28 15:19 | ER ---
Nurse's Notes [facility] Name: Paresh Cruz Age: 52 yrs Sex: Male : 1965 Arrival Date: 12/28/2017 Time: 11:34 Bed 24 Private MD: Out, [facility] Diagnosis: Abdominal and pelvic pain;Colon Mass Presentation: 12/28 11:36 Presenting complaint: Patient states: RUQ pain since last night. Hx colon CA w/mets to hb liver. Transition of care: patient was not received from another setting of care. Onset of symptoms was December 27, 2017. Risk Assessment: Do you want to hurt yourself or someone else? Patient reports no desire to harm self or others. Initial Sepsis Screen: Does the patient meet any 2 criteria? No. Patient's initial sepsis screen is negative. Does the patient have a suspected source of infection? No. Patient's initial sepsis screen is negative. 11:36 Method Of Arrival: Wheelchair hb 11:36 Acuity: SALONI 2 hb 17:52 Care prior to arrival: None. aj1 Historical: - Allergies: 11:39 No Known Allergies; hb - PMHx: 11:39 colon cancer; Diverticulitis; hb - PSHx: 11:39 eye; hb - Immunization history:: Adult Immunizations up to date. - Social history:: Smoking status: Patient/guardian denies using tobacco. - Ebola Screening: : No symptoms or risks identified at this time. Screenin:00 Abuse screen: Denies threats or abuse. Denies injuries from another. Nutritional aj1 screening: No deficits noted. Tuberculosis screening: No symptoms or risk factors identified. 17:52 Fall Risk None identified. aj1 Assessment: 12:00 General: Appears in no apparent distress. uncomfortable, Behavior is cooperative, aj1 restless, Reports fatigue for >3 days. Pain: Complains of pain in right upper quadrant Pain does not radiate. Pain currently is 10 out of 10 on a pain scale. Quality of pain is described as sharp, Pain began 1 day ago. Aggravated by movement, deep breathing, laying flat. Neuro: Level of Consciousness is awake, alert, obeys commands, Oriented to person, place, time, situation, Speech is normal, Facial symmetry appears normal. Cardiovascular: Heart tones S1 S2 present Patient's skin is warm and dry. Rhythm is regular. Respiratory: Reports shortness of breath on exertion Airway is patent Respiratory effort is even, unlabored, Respiratory pattern is regular, symmetrical, Breath sounds are clear bilaterally. GI: Abdomen is non-distended, Abd is soft X 4 quads Abdomen is tender to palpation in right upper quadrant Reports chronic diarrhea and bloody stools that has been going on for the past 3 to 4 years. Patient states that the bloody stools gone from a maroon to a brighter red recently. : No signs and/or symptoms were reported regarding the genitourinary system. EENT: No signs and/or symptoms were reported regarding the EENT system. Derm: Skin is pale. Musculoskeletal: No signs and/or symptoms reported regarding the musculoskeletal system. Circulation, motion, and sensation intact. 12:47 Reassessment: Patient appears in no apparent distress at this time. No changes from aj1 previously documented assessment. Patient and/or family updated on plan of care and expected duration. Pain level reassessed. Patient is alert, oriented x 3, equal unlabored respirations, skin warm/dry/pink. 13:35 Reassessment: Patient states that he is having continued pain despite earlier [facility] administration of pain medication. Notified LADONNA Hart. Order received. 14:35 Reassessment: Patient appears in no apparent distress at this time. No changes from aj1 previously documented assessment. Patient and/or family updated on plan of care and expected duration. Pain level reassessed. Patient is alert, oriented x 3, equal unlabored respirations, skin warm/dry/pink. Patient states that his pain has decreased to a 4/10 at this time. 15:40 Reassessment: Patient states that he does not feel confident that he will be able to aj1 drive up to his surgery appointment on Thursday. States that he was told by Dr. Myers that if he ever had pain like he experienced today he was to present to the nearest emergency room and then be transferred. Notified LADONNA Hart who will speak with Dr. Myers prior to patient being discharged. 16:30 Reassessment: Patient appears in no apparent distress at this time. No changes from aj1 previously documented assessment. Patient and/or family updated on plan of care and expected duration. Pain level reassessed. Patient is alert, oriented x 3, equal unlabored respirations, skin warm/dry/pink. 17:30 Reassessment: OK to discharge patient per LADONNA Hart. aj1 Vital Signs: 11:38 BP 110 / 83; Pulse 83; Resp 20; Temp 97(TE); Pulse Ox 99% on R/A; Pain 10/10; hb 12:47 BP 106 / 71; Pulse 73; Resp 18; Pulse Ox 97% on R/A; aj1 13:40 BP 105 / 62; Pulse 65; Resp 18; Pulse Ox 99% ; aj1 14:39 BP 123 / 73; Pulse 78; Resp 18; Pulse Ox 96% on R/A; aj1 15:35 BP 121 / 73; Pulse 75; Resp 18; Pulse Ox 99% on R/A; aj1 ED Course: 11:34 Patient arrived in ED. sb2 11:35 Out, of Town is Private Physician. sb2 11:38 Triage completed. hb 11:39 Arm band placed on right wrist. hb 11:43 India Jin, RN is Primary Nurse. aj1 11:44 Sourav Howell PA is PHCP. jr8 11:44 Saravanan Valadez MD is Attending Physician. jr8 12:00 Patient has correct armband on for positive identification. Bed in low position. Call aj1 light in reach. Side rails up X 1. 12:00 No provider procedures requiring assistance completed. Initial lab(s) drawn, by me, aj1 sent to lab. Inserted saline lock: 20 gauge in left antecubital area, using aseptic technique. Blood collected. 12:00 T\T\S collected, blood band applied to patient. aj1 12:40 Note: DROPPED CONTRAST OFF AT 1207. sw 13:48 CT Abd/Pelvis - Without Cont In Process Unspecified. EDMS 17:52 IV discontinued, intact, bleeding controlled, No redness/swelling at site. Pressure aj1 dressing applied. Administered Medications: 12:41 Drug: fentaNYL (PF) 50 mcg Route: IVP; Site: left antecubital; aj1 13:00 Follow up: Response: No adverse reaction aj1 12:42 Drug: Zofran 4 mg Route: IVP; Site: left antecubital; aj1 13:00 Follow up: Response: No adverse reaction aj1 13:40 Drug: fentaNYL (PF) 50 mcg Route: IVP; Site: left antecubital; aj1 14:00 Follow up: Response: No adverse reaction aj1 Outcome: 15:18 Discharge ordered by . miguel ángel 17:54 Discharged to home ambulatory. aj1 17:54 Condition: stable 17:54 Discharge instructions given to patient, Instructed on discharge instructions, follow up and referral plans. no drinking with medication, no driving heavy equipment, medication usage, Demonstrated understanding of instructions, follow-up care, medications, Prescriptions given X 2. 17:54 Patient left the ED. aj1 Signatures: Dispatcher [employer] EDIndia Blanco RN RN aj1 Sourav Howell PA PA jr8 Warren, Shannon sw Baxter, Heather, RN RN Ketty Dugan sb2
--- NOTE | 2017-12-28 15:19 | EDPHYS ---
Physician Documentation [facility] Name: Paresh Cruz Age: 52 yrs Sex: Male : 1965 Arrival Date: 12/28/2017 Time: 11:34 Bed 24 Private MD: Out, [facility], [facility] ED Physician Saravanan Valadez HPI: 12/28 13:03 This 52 yrs old Male presents to ER via Wheelchair with complaints of jr8 Breathing Difficulty, Abdominal Pain. 13:03 The patient presents with abdominal pain. Onset: The symptoms/episode began/occurred jr8 gradually, 2 day(s) ago, and became worse and became persistent. The symptoms do not radiate. Associated signs and symptoms: Pertinent positives: blood in stools, shortness of breath. The symptoms are described as crampy, sharp. Modifying factors: The symptoms are alleviated by nothing, the symptoms are aggravated by nothing. Severity of pain: At its worst the pain was moderate in the emergency department the pain is unchanged. The patient has not experienced similar symptoms in the past. The patient has been recently seen by a physician:. Patient this past mid November was diagnosed with metastatic colon mass. Stated that he had blood in stool for past couple of years and put it off until it go worse. Stated that he has seen colorectal surgery and is scheduled to have colon removal. Came to ED because he is having abdominal pain and shortness of breath. Historical: - Allergies: 11:39 No Known Allergies; hb - PMHx: 11:39 colon cancer; Diverticulitis; hb - PSHx: 11:39 eye; hb - Immunization history:: Adult Immunizations up to date. - Social history:: Smoking status: Patient/guardian denies using tobacco. - Ebola Screening: : No symptoms or risks identified at this time. ROS: 13:03 Eyes: Negative for injury, pain, redness, and discharge, ENT: Negative for injury, jr8 pain, and discharge, Neck: Negative for injury, pain, and swelling, Cardiovascular: Negative for chest pain, palpitations, and edema, Back: Negative for injury and pain, MS/Extremity: Negative for injury and deformity, Skin: Negative for injury, rash, and discoloration, Neuro: Negative for headache, weakness, numbness, tingling, and seizure. 13:03 Respiratory: Positive for shortness of breath. 13:03 Abdomen/GI: Positive for abdominal pain, rectal bleeding. Exam: 13:03 Eyes: Pupils equal round and reactive to light, extra-ocular motions intact. Lids and jr8 lashes normal. Conjunctiva and sclera are non-icteric and not injected. Cornea within normal limits. Periorbital areas with no swelling, redness, or edema. ENT: Nares patent. No nasal discharge, no septal abnormalities noted. Tympanic membranes are normal and external auditory canals are clear. Oropharynx with no redness, swelling, or masses, exudates, or evidence of obstruction, uvula midline. Mucous membranes moist. Neck: Trachea midline, no thyromegaly or masses palpated, and no cervical lymphadenopathy. Supple, full range of motion without nuchal rigidity, or vertebral point tenderness. No Meningismus. Cardiovascular: Regular rate and rhythm with a normal S1 and S2. No gallops, murmurs, or rubs. Normal PMI, no JVD. No pulse deficits. Respiratory: Lungs have equal breath sounds bilaterally, clear to auscultation and percussion. No rales, rhonchi or wheezes noted. No increased work of breathing, no retractions or nasal flaring. Back: No spinal tenderness. No costovertebral tenderness. Full range of motion. MS/ Extremity: Pulses equal, no cyanosis. Neurovascular intact. Full, normal range of motion. Neuro: Awake and alert, GCS 15, oriented to person, place, time, and situation. Cranial nerves II-XII grossly intact. Motor strength 5/5 in all extremities. Sensory grossly intact. Cerebellar exam normal. Normal gait. 13:03 Abdomen/GI: Inspection: abdomen appears normal, Bowel sounds: active, all quadrants, Palpation: soft, in all quadrants, moderate abdominal tenderness, in the anterior aspect of right lateral abdomen, voluntary guarding, is elicited in the anterior aspect of right lateral abdomen, involuntary guarding, is not appreciated, no appreciated organomegaly, Indicators: McBurney's point is not tender, Nj's sign is negative, Rovsing's sign is negative, Liver: tenderness, is not appreciated. 13:06 Skin: Appearance: Color: pale, Temperature: normal temperature, Moisture: normal jr8 moisture. Vital Signs: 11:38 BP 110 / 83; Pulse 83; Resp 20; Temp 97(TE); Pulse Ox 99% on R/A; Pain 10/10; hb 12:47 BP 106 / 71; Pulse 73; Resp 18; Pulse Ox 97% on R/A; aj1 13:40 BP 105 / 62; Pulse 65; Resp 18; Pulse Ox 99% ; aj1 14:39 BP 123 / 73; Pulse 78; Resp 18; Pulse Ox 96% on R/A; aj1 15:35 BP 121 / 73; Pulse 75; Resp 18; Pulse Ox 99% on R/A; aj1 MDM: 11:44 Patient medically screened. jr8 15:15 Data reviewed: vital signs, nurses notes, lab test result(s), radiologic studies, CT jr scan, and as a result, I will discharge patient. Data interpreted: Pulse oximetry: on room air is 96 %. Interpretation: normal. Counseling: I had a detailed discussion with the patient and/or guardian regarding: the historical points, exam findings, and any diagnostic results supporting the discharge/admit diagnosis, lab results, radiology results, the need for outpatient follow up, a general surgeon, to return to the emergency department if symptoms worsen or persist or if there are any questions or concerns that arise at home. ED course: Patient is set to have surgery this Thursday at [facility] under the care of Dr. Myers. CT and blood work completed today without acute change from previous studies a couple of weeks ago. No acute obstruction. Pain better. Vitals stable. Will send home on pain medication and to see his surgeon on Thursday. If worse to come back or go to [facility] for further evaluation. This was also confirmed with Dr. Myers who is good with this plan. 12/28 11:55 Order name: Basic Metabolic Panel; Complete Time: 12:34 8 12/28 11:55 Order name: CBC with Diff; Complete Time: 13:22 8 12/28 11:55 Order name: Creatinine for Radiology; Complete Time: 12:28 8 12/28 11:55 Order name: Hepatic Function; Complete Time: 12:34 8 12/28 11:55 Order name: Lipase; Complete Time: 12:34 12/28 11:55 Order name: TS; Complete Time: 13:42 8 12/28 11:55 Order name: IV Saline Lock; Complete Time: 12:14 8 12/28 11:55 Order name: Labs collected and sent; Complete Time: 12:14 8 12/28 11:57 Order name: CT Abd/Pelvis - Without Cont; Complete Time: 14:18 jr8 12/28 12:16 Order name: CBC Smear Scan; Complete Time: 13:22 EDMS 12/28 13:27 Order name: Antibody Identification; Complete Time: 13:42 EDMS Administered Medications: 12:41 Drug: fentaNYL (PF) 50 mcg Route: IVP; Site: left antecubital; aj1 13:00 Follow up: Response: No adverse reaction aj1 12:42 Drug: Zofran 4 mg Route: IVP; Site: left antecubital; aj1 13:00 Follow up: Response: No adverse reaction aj1 13:40 Drug: fentaNYL (PF) 50 mcg Route: IVP; Site: left antecubital; aj1 14:00 Follow up: Response: No adverse reaction aj1 Disposition: 18:33 Co-signature as Attending Physician, Saravanan Valadez MD. rn Disposition: 12/28/17 15:18 Discharged to Home. Impression: Abdominal and pelvic pain, Colon Mass. - Condition is Stable. - Discharge Instructions: Abdominal Pain, Adult. - Prescriptions for Tylenol- Codeine #3 300-30 mg Oral Tablet - take 2 tablet by ORAL route every 6 hours As needed; 30 tablet. Zofran 4 mg Oral Tablet - take 1 tablet by ORAL route every 12 hours As needed; 20 tablet. - Medication Reconciliation Form, Thank You Letter, Antibiotic Education, Prescription Opioid Use form. - Follow up: Private Physician; When: 1 - 2 days; Reason: Recheck today's complaints, Continuance of care, Re-evaluation by your physician. - Problem is new. - Symptoms have improved. Signatures: Dispatcher [employer] EDLA India Jin RN RN aj1 Saravanan Valadez MD MD rn Roszak, Josh, PA PA jr8 Madie Jarrett RN RN Corrections: (The following items were deleted from the chart) 13:07 13:03 Eyes: Pupils equal round and reactive to light, extra-ocular motions intact. Lids jr8 and lashes normal. Conjunctiva and sclera are non-icteric and not injected. Cornea within normal limits. Periorbital areas with no swelling, redness, or edema. ENT: Nares patent. No nasal discharge, no septal abnormalities noted. Tympanic membranes are normal and external auditory canals are clear. Oropharynx with no redness, swelling, or masses, exudates, or evidence of obstruction, uvula midline. Mucous membranes moist. Neck: Trachea midline, no thyromegaly or masses palpated, and no cervical lymphadenopathy. Supple, full range of motion without nuchal rigidity, or vertebral point tenderness. No Meningismus. Cardiovascular: Regular rate and rhythm with a normal S1 and S2. No gallops, murmurs, or rubs. Normal PMI, no JVD. No pulse deficits. Respiratory: Lungs have equal breath sounds bilaterally, clear to auscultation and percussion. No rales, rhonchi or wheezes noted. No increased work of breathing, no retractions or nasal flaring. Back: No spinal tenderness. No costovertebral tenderness. Full range of motion. Skin: Warm, dry with normal turgor. Normal color with no rashes, no lesions, and no evidence of cellulitis. MS/ Extremity: Pulses equal, no cyanosis. Neurovascular intact. Full, normal range of motion. Neuro: Awake and alert, GCS 15, oriented to person, place, time, and situation. Cranial nerves II-XII grossly intact. Motor strength 5/5 in all extremities. Sensory grossly intact. Cerebellar exam normal. Normal gait. jr8 17:07 15:15 ED course: Patient is set to have surgery this Thursday at [facility] under the jr8 care of Dr. Myers. CT and blood work completed today without acute change from previous studies a couple of weeks ago. No acute obstruction. Pain better. Vitals stable. Will send home on pain medication and to see his surgeon on Thursday. If worse to come back or go to [facility] for further evaluation . jr8 17:54 15:18 12/28/2017 15:18 Discharged to Home. Impression: Abdominal and pelvic pain; Colon aj1 Mass. Condition is Stable. Forms are Medication Reconciliation Form, Thank You Letter, Antibiotic Education, Prescription Opioid Use. Follow up: Private Physician; When: 1 - 2 days; Reason: Recheck today's complaints, Continuance of care, Re-evaluation by your physician. Problem is new. Symptoms have improved. jr8
== END 2017-12-28 17:54 | disposition home or self-care (01) ==
LOC: ER 11:30
DX: K63.89 Other specified diseases of intestine (principal); Z85.038 Personal history of other malignant neoplasm of large intestine
CPT/HCPCS: 36415; 74176; 80048; 80076; 83690; 85025; 86850; 86870; 86900; 86901; 96374; 96375; 99284; J2405; J3010